=== PATIENT | male | born 1965 | race Caucasian/White ===

== ENCOUNTER 2020-09-02 12:42 | Outpatient (REF) | payer OTHER, SELFPAY ==
--- NOTE | 2020-09-02 | US_ITS ---
EXAMINATION: US SCROTUM CLINICAL INFORMATION: Testicular microlithiasis. COMPARISON: Ultrasound scrotum 09/09/2019. TECHNIQUE: A sonogram of the scrotum was performed assessing galeana-scale appearance and color Doppler flow. Spectral Doppler analysis of the arterial and venous flow were performed in the testes bilaterally. FINDINGS: RIGHT: Right testicle measures 5.7 x 2.7 x 3.2 cm, volume 26.2 mL. There are several echogenic calcifications in the testes. On Spectral Doppler analysis of the arterial and venous flow is normal in the right testis. Right epididymal head is normal with clusters of echogenic calcifications in the epidural head. The measure 0.6 x 0.4 x 0.4 cm. Mild prominence of the entire epididymis is noted. No right hydrocele or varicocele is seen. Right epididymal Doppler flow is normal. LEFT: Left testicle measures 5.5 x 2.4 x 3.2 cm, volume 22.4 mL. There are several echogenic calcifications in the testes. On Spectral Doppler analysis of the arterial and venous flow is normal in the left testis. Left epididymal head is normal. There is a mass in left epididymal tail measuring 1.2 x 1 0.2 to 1.1 cm. Previously it measured 1.1 x 1.0 x 1.2 cm. There is mild prominence of the entire epididymis. There is a small left hydrocele. No left varicocele is seen. Left epididymal Doppler flow is normal. 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 Clusters of calcification in the head of the right epididymis. Similar to previous study. Solid hypoechoic mass in the tail of left epididymis, minimal to no change. Small left hydrocele.
== END 2020-09-02 12:43 | disposition home or self-care (01) ==
LOC: HO.US 12:42
PROVIDERS: Visit Provider Urology
DX: N50.89 Other specified disorders of the male genital organs (principal)
CPT/HCPCS: 76870